=== PATIENT | female | born 1950 | race Hispanic/Latino ===

== ENCOUNTER 2016-07-03 17:23 | Emergency (ER) | payer MEDICARE ==
[~2016-07-03] VITALS: Ht 152.4 cm; Wt 81.8 kg
[~2016-07-03 17:23] MED LIST: CHOL500011 PO; LOVA20TA PO; METF10002 PO
[2016-07-03 17:51] VITALS: BP 173/97; PULSE 74; RESP 16
--- NOTE | 2016-07-03 19:21 | ED.REPORT ---
HPI-Abd Pain F 40 and Over Date of Service Jul 03, 2016 ED Provider: Gary Porras PA-C A 65 year old female with a history of diabetes and hyperlipidemia presents to the ED complaining of intractable vomiting that began this morning. Patient has been unable to eat, consume liquids or take her blood pressure medication. She denies any current nausea but reports nausea prior to eating. She denies fever, diarrhea or pain. Nursing Notes Stated Complaint: VOMITING Chief Complaint: Female Abdominal Pain Nursing Notes Reviewed: Yes Allergies: Coded Allergies: No Known Allergies (Unverified , 07/03/16) Scheduled Lovastatin (Lovastatin) 20 Mg Tablet 20 MG PO HS Metformin (Metformin) 1,000 Mg Tablet 1,000 MG PO BIDWM Miscellaneous Medications Cholecalciferol (Vitamin D3) (Vitamin D3) 5,000 Unit Tablet 5,000 UNIT PO General Time Seen by MD: 19:21 Chief Complaint Vomiting moderate Hx Obtained From: Patient Arrived By: Walk-in Sudden in Onset?: Yes Onset Occurred: 9 - 12 hours ago Context of Onset: Eating Symptom Duration: Since onset Progression since Onset: Unchanged Severity: Current: No pain currently Associated with: Reports: Nausea, Vomiting, Denies: Diarrhea, Fever Pertinent Negative: Pt denies other symptoms Recent Healthcare: No recent doctor visit, No recent hospitalization Past Medical History Past Medical History Reports: Diabetes mellitus, Hyperlipidemia Past Surgical History None reported. Smoking History Never Smoker Social History Alcohol Use: Denies alcohol use Drug Use: Denies drug use Other Social History: Good social support, Local resident Ambulatory Status Independent Review of Systems Constitutional: Denies: Chills, Fever Respiratory: Denies: Shortness of breath Cardiovascular: Denies: Chest pain GI: Reports: Nausea, Vomiting, Denies: Abdominal pain, Diarrhea Complete sys rev & neg: except as marked. Neurologic: Denies: Change LOC Physical Exam Vital Signs Vital Signs (First) Date Time Temp Pulse Resp B/P Pulse Ox O2 Delivery O2 Flow Rate FiO2 07/03/16 17:51 37.2 74 16 173/97 Room Air Initial VS: Reviewed Head / Eyes: Atraumatic, Normocephalic, PERRL Extremities: Vascular intact, Neuro intact, No swelling, No tenderness Skin: Warm, Dry, No cyanosis Neurologic: Alert, Oriented, Nonfocal Psychiatric: Mood/affect normal, Behavior normal, Normal thought content General/Constitutional: Awake, Alert Respiratory / Chest: Atraumatic, Breath sounds NL, Breath sounds = bilat Cardiovascular: Heart rate NL, Regular rhythm, Heart sounds NL Abdomen: Atraumatic, Soft Tenderness/Guarding/Rebound: Positive: Tender diffuse (Mild) Back: Atraumatic, Inspection NL Interpretation & Diagnostics Lab Results Interpretation Result Diagram: 07/03/16200407/03/162004 Test 07/03/16 19:55 07/03/16 20:05 Urine Color Yellow (YELLOW) Urine Appearance Hazy (CLEAR,HAZY) Urine pH >9.0 (5.0-8.0) Urine Specific [place] 1.015 (1.003-1.035) Urine Protein Negativemg/dL (NEG,TRACE) Urine Glucose (UA) Negativemg/dL (NEGATIVE) Urine Ketones Negativemg/dL (NEGATIVE) Urine Occult Blood Negative (NEGATIVE) Urine Nitrite Positive (NEGATIVE) Urine Bilirubin Negative (NEGATIVE) Urine Urobilinogen Normalmg/dL (NORMAL) Urine Leukocyte Esterase Negative (NEGATIVE) Urine RBC 0-2/hpf (0-2) Urine WBC 6-10/hpf (0-5) Urine Epithelial Cells Many/hpf (NONE-MOD) Urine Crystals None seen (NONE SEEN) Urine Bacteria Many/hpf (NONE-FEW) Urine Hyaline Casts None/lpf (NONE) Urine Granular Casts None seen (NONE SEEN) Urine Waxy Casts None seen (NONE SEEN) Urine Red Blood Cell Casts None seen (NONE SEEN) Urine White Blood Cell Casts None seen (NONE SEEN) Urine Mucus Present (None Seen) Urine Trichomonas None seen (NONE SEEN) Urine Yeast None (NONE SEEN) Urinalysis Comment None Urine Culture Reflexed Indicated White Blood Count 7.0th/mm3 (3.8-10.1) Red Blood Count 4.52mil/mm3 (3.90-5.20) Hemoglobin 13.0g/dL (12.0-15.6) Hematocrit 39.4% (35.0-46.0) Mean Corpuscular Volume 87.2fL (81-100) Mean Corpuscular Hemoglobin 28.8pg (27.0-35.0) Mean Corpuscular Hemoglobin Concent 33.0% (32.0-37.0) Red Cell Distribution Width 14.6% (12.3-15.4) Platelet Count 205bil/L (150-400) Neutrophils (%) (Auto) 74.1% (40-74) Lymphocytes (%) (Auto) 20.5% (14-46) Monocytes (%) (Auto) 4.0% (4-12) Eosinophils (%) (Auto) 0.4% (0-5) Basophils (%) (Auto) 0.6% (0-3) Sodium Level 136mEq/L (134-144) Potassium Level 4.2mEq/L (3.5-5.2) Chloride Level 96mEq/L (97-108) Carbon Dioxide Level 27mmol/L (18-29) Blood Urea Nitrogen 14mg/dL (8-27) Creatinine 0.42mg/dL (0.57-1.00) Estimat Glomerular Filtration Rate 216mL/min (>59) Glucose Level 134mg/dL (60-99) Calcium Level 9.7mg/dL (8.5-10.1) Total Bilirubin 0.4mg/dL (0.0-1.2) Aspartate Amino Transf (AST/SGOT) 39U/L (0-50) Alanine Aminotransferase (ALT/SGPT) 30U/L (0-32) Alkaline Phosphatase 81U/L (25-165) Total Protein 8.4g/dL (6.4-8.4) Albumin 4.6g/dL (3.4-5.0) Lipase 162U/L (13-60) Hold [place]nel[place] Top Tube Received (Received) Re-Eval/Medical Decision Re-Evaluation/Progress : Time of Eval: 20:50 )( Re-Eval Abdomen: Soft, Non-tender, No guarding, No rebound, McBurney's non-tender, No distention Patient Status: Condition improved, Complete relief Re-Evaluation/Progress Note: Patient is rechecked. She is informed of her lab results and diagnosis. All questions are addressed. She understands and agrees with the treatment plan. Counseled Regarding: Diagnosis, Lab results, Need for follow-up, When/why to return to ED Discharge & Departure Primary Impression: Vomiting Vomiting type: unspecified Vomiting Intractability: intractable Nausea presence: with nausea Qualified Code: R11.2 - Nausea with vomiting, unspecified Disposition: Home Discharge Condition All VS Reviewed: Yes Condition: Stable Patient Instructions: Acute Nausea and Vomiting (ED) Additional Instructions: Thank you for trusting us with your care this evening. Your emergency department evaluation today included interview, examination and lab work. Your results are reassuring that there is no dangerous cause for concern at this time. Please drink plenty of fluids for the next few days. Schedule an appointment with your primary care provider in the next 2-3 days for a recheck. Please return to the emergency department for any new or worsening symptoms. One of her blood tests was slightly elevated. Your lipase level was about 160. This may or may not be something of significance. Follow up right away if you develop fever or significant abdominal pain. Use ondansetron as needed for nausea. [employer] Marybeth por confiar en ponce atencin esta noche. Ponce evaluacin del departamento de urgencias incluy entrevistas, exmenes y trabajos de laboratorio. Parvin resultados son tranquilizadores de que no hay ninguna causa peligrosa de preocupacin en emre momento. Por favor, tome muchos lquidos heather los pr ximos ching. Programe mariela marianne con ponce proveedor de atencin primaria en los pr ximos 2-3 ching para mariela revisin. Por favor regrese al departamento de emergencias para cualquier nuevo o empeoramiento de los sntomas. Caden de parvin an lisis de bianca fue ligeramente elevado. Ponce nivel de lipasa fue de 160. [place] puede o no ser algo importante. Seguir inmediatamente si usted desarrolla fiebre o dolor abdominal significativo. Use ondansetron segn sea necesario para las nuseas. Referrals: Bhartai Bae MD (PCP) Scribe Attestation Portions of this note were transcribed by Sera Dobson. I, Dr. Donis personally performed the history, physical exam and medical decision-making; I reviewed and confirmed the accuracy of the information in the transcribed note. Signed by: Sera Dobson, Leonidas, 07/03/16 2200. copies to: Bharati Bae MD, Kirk H MD Jul 03, 2016 19:21 SERA DOBSON Jul 03, 2016 19:45
[2016-07-03 20:23] LABS: BASOPHILS % (AUTO) 0.6 % (0-3); EOSINOPHILS % (AUTO) 0.4 % (0-5); Mean Corpuscular Hemoglobin 28.8 pg (27.0-35.0); Mean Corpuscular Volume 87.2 fL (81-100); NEUTROPHILS % (AUTO) 74.1 % (40-74); Platelet Count 205 bil/L (150-400)
[2016-07-03 20:26] LABS: APPEARANCE,URINE HAZY (CLEAR,HAZY); COLOR,URINE YELLOW (YELLOW); OCCULT BLOOD,URINE NEGATIVE (NEGATIVE); PH,URINE >9.0 (5.0-8.0); UROBILINOGEN,URINE NORMAL (NORMAL)
[2016-07-03] MEDS ORDERED: _Ondansetron ODT 4 mg Tablet PO PRN (21:00)
[2016-07-03 21:36] VITALS: BP 146/93; PULSE 71; RESP 20; O2SAT 96
== END 2016-07-03 22:00 | disposition home or self-care (01) ==
LOC: SED 17:23
DX: R11.2 Nausea with vomiting, unspecified (principal); E78.5 Hyperlipidemia, unspecified; E11.9 Type 2 diabetes mellitus without complications; Z79.84 Long term (current) use of oral hypoglycemic drugs